=== PATIENT | male | born 1950 | race Caucasian/White ===

== ENCOUNTER → 2018-02-21 | Outpatient (CLI) | payer MEDICARE ==
[~2018-02-21] MED LIST: REGADENOSON 0.4 MG/5 ML DISP.SYRIN. IV
== END | disposition home or self-care (01) ==
LOC: PCVCCLINIC 13:16
DX: Z01.818 Encounter for other preprocedural examination (principal); R94.31 Abnormal electrocardiogram [ECG] [EKG]; M19.90 Unspecified osteoarthritis, unspecified site; E78.00 Pure hypercholesterolemia, unspecified; Z87.891 Personal history of nicotine dependence; Z79.899 Other long term (current) drug therapy
CPT/HCPCS: 78452; 80061; 93005; 93017; A9500; G0463; J2785

== ENCOUNTER → 2018-02-28 | Outpatient (CLI) | payer MEDICARE | END | disposition home or self-care (01) | LOC: PCVCIMAG 09:04 | DX: Z01.818 Encounter for other preprocedural examination (principal); R94.31 Abnormal electrocardiogram [ECG] [EKG] | CPT/HCPCS: 93306 ==

== ENCOUNTER → 2019-03-01 | Outpatient (CLI) | payer MEDICARE | END | disposition home or self-care (01) | LOC: PCVCCLINIC 10:00 | PROVIDERS: ATTEND Internal Medicine Cardiovascular Disease | DX: R94.31 Abnormal electrocardiogram [ECG] [EKG] (principal); E78.00 Pure hypercholesterolemia, unspecified; R93.1 Abnormal findings on diagnostic imaging of heart and coronary circulation; M19.90 Unspecified osteoarthritis, unspecified site; Z87.891 Personal history of nicotine dependence | CPT/HCPCS: 36415; 80061; 93005; G0463 ==

== ENCOUNTER → 2019-06-13 | Outpatient (CLI) | payer MEDICARE ==
--- NOTE | 2019-06-13 15:15 | PCVCIMAG ---
APPROVED REPORT Study performed: 06/13/2019 11:49:19 Exam: Stress Echocardiogram Indication: Abn ekg,elevated cor ca score Patient Location: Echo lab Stress Nurse: Haley Vincent RN Room #: 2 Status: routine Ht: 6 ft 0 in HR: 76 bpm BP: 142/88 mmHg Rhythm: NSR Medical History Medical History: CAD non obstructive, Hyperlipidemia Cardiac Risk Factors: Hyperlipidemia Previous Cardiac Procedures: none Pretest Chest Pain Characteristics: No chest pain Exercise History: Physically active Physical Disabilities: knee pain Procedure The patient underwent an Exercise Stress Test using the Rosalina Protocol. Blood pressure, heart rate, and EKG were monitored. An Echocardiogram was performed by library media technician in four stages in quad fashion. At peak stress, four selected images were obtained and placed side by side with resting images for comparison. Stress Test Details Stress Test: Exercise stress testing was performed using a Rosalina protocol. HR Resting HR: 76 bpmMax Heart Rate (APMHR): 153 bpm Max HR Achieved: 142 bpmTarget HR (85% APMHR): 130 bpm % of APMHR: 92 Recovery HR: 87 bpm HR response to stress: Normal HR response to stress BP Resting BP: 142/88 mmHg Max BP: 164/80 mmHg Recovery BP: 140/84 mmHg BP response to stress: Normal blood pressure response to stress. ECG Resting ECG: Sinus Rhythm Stress ECG: Sinus Rhythm, NSSTT changes ST Change: Non-ischemic Maximum ST Deviation: ---0.95 mm Arrhythmia: rare PVCs Recovery ECG: Sinus Rhythm Recovery ST Change: Non-ischemic Recovery ST Deviation: -1.15 mm Recovery Arrhythmia: None Clinical Reason for Termination: Maximal effort Stress Symptoms: Leg Fatigue, knee pain Exercise duration: 6 min 43 sec Highest Stage Achieved: Stage 3: 3.4 mph at 14% grade. Exercise capacity: 9.2 METs Overall Exercise Capacity for Age: Average Scale: Active Angina Score: None No complications. Stress ECG Conclusion The patient exercised according to the ROSALINA protocol for 6:43 mins; achieving a work level of 9.2 METS. The resting heart rate of 76 bpm felix to a maximum heart rate of 142 bpm. This value represent 92% of the maximal, age-predicted heart rate. The resting blood pressure of 142/88 mmHg, felix to a maximum blood pressure of 164/80 mmHg. The exercise test was stopped due to fatigue. Adamson Treadmill Score is 10.8 which is Low risk. Pre-Stress Echo The resting Echocardiogram showed normal left ventricular contractility with an estimated Ejection Fraction of about 55-60%. Normal wall motion in all segments on baseline images. Post-Stress Echo The stress Echocardiogram showed normal left ventricular contractility with an estimated Ejection Fraction of about 65-70%. Normal augmentation of wall motion in all segments on post stress images. Clinical No clinical or ECG evidence for ischemia. Conclusion Clinical Response: Non-ischemic Exercise Capacity: Average Stress ECG Response: Non-ischemic Stress Echo Images: Non-ischemic No clinical, EKG or echocardiographic evidence for ischemia. No echocardiographic evidence for exercise induced ischemia. Normal stress echocardiogram with maximal exercise stress. <Conclusion> No clinical, EKG or echocardiographic evidence for ischemia. No echocardiographic evidence for exercise induced ischemia. Normal stress echocardiogram with maximal exercise stress.
== END | disposition home or self-care (01) ==
LOC: PCVCIMAG 11:32
PROVIDERS: ATTEND Internal Medicine Cardiovascular Disease
DX: E83.52 Hypercalcemia (principal)
CPT/HCPCS: 93325; 93351